=== PATIENT | female | born 1980 | race Caucasian/White ===

== ENCOUNTER 2017-09-21 21:29 | Emergency (ER) | payer SELFPAY ==
--- NOTE | 2017-09-21 23:13 | ER Document Report ---
ED Animal Bite - General Mode of Arrival: Ambulatory Information source: Patient <SHANNAN CARRION - Last Filed: 09/21/17 23:52> <HAYDE BURNETTE - Last Filed: 09/22/17 02:16> - General Chief Complaint: Dog Bite Stated Complaint: POSSIBLE DOG BITE Time Seen by Provider: 09/21/17 23:03 Notes: 37 y.o female presents to the ED s/p dog bite to her LT leg. Pt states that she was walking outside and a stray dog came out of no where and "latched onto her leg". Pt does not wish to get rabies vaccination. She has no other complaints at this time. (SHANNAN CARRION) - Related Data Allergies/Adverse Reactions: montelukast [From Singulair] Allergy (Verified 09/21/17 21:55) Past Medical History - General Information source: Patient - Social History Family History: Reviewed & Not Pertinent Renal/ Medical History: Denies: Hx Peritoneal Dialysis - Immunizations Hx Diphtheria, Pertussis, Tetanus Vaccination: Yes <SHANNAN CARRION - Last Filed: 09/21/17 23:52> - Social History Smoking Status: Never Smoker Frequency of alcohol use: None Family History: Reviewed & Not Pertinent - Past Medical History Cardiac Medical History: Reports: Hx Hypertension <HAYDE BURNETTE - Last Filed: 09/22/17 02:16> Review of Systems - Review of Systems Constitutional: No symptoms reported EENT: No symptoms reported Cardiovascular: No symptoms reported Respiratory: No symptoms reported Gastrointestinal: No symptoms reported Genitourinary: No symptoms reported Female Genitourinary: No symptoms reported Musculoskeletal: No symptoms reported Skin: Other - Dog bite to LT leg Hematologic/Lymphatic: No symptoms reported Neurological/Psychological: No symptoms reported -: Yes All other systems reviewed and negative <SHANNAN CARRION - Last Filed: 09/21/17 23:52> - Review of Systems Musculoskeletal: See HPI, Muscle pain. denies: No symptoms reported Skin: See HPI <HAYDE BURNETTE - Last Filed: 09/22/17 02:16> Physical Exam <SHANNAN CARRION - Last Filed: 09/21/17 23:52> <HAYDE BURNETTE - Last Filed: 09/22/17 02:16> - Vital signs Vitals: Temp Pulse Resp BP Pulse Ox 98.2 F 76 16 111/50 L 100 09/21/17 22:00 09/21/17 22:00 09/21/17 22:00 09/21/17 22:00 09/21/17 22:00 - Notes Notes: PHYSICal EXAM General: Alert, appears uncomfortable. HEENT: Normocephalic. Atraumatic. PERRLA. Extraocular movements intact. Oropharynx clear. Neck: Supple. Lungs: Clear to auscultation bilaterally, no wheezes, rales, or rhonchi. No respiratory distress. Heart: Regular rate and rhythm. No murmurs, gallops, or rubs. Abdominal: Normal Inspection. No distension. Extremities: Moves all four extremities. Puncture wounds to her LT lateral leg with surrounding ecchymosis consistent with her Hx. Bleeding controlled. Neurological: Cranial nerves II-XII grossly intact bilaterally. Normal cognition. AAOx4. Normal speech. Psychological: Normal affect. Normal Mood. Skin: puncture wounds to her LT lateral leg with surrounding ecchymosis consistent with Hx. Bleeding controlled. (SHANNAN CARRION) Course <SHANNAN CARRION - Last Filed: 09/21/17 23:52> <HAYDE BURNETTE - Last Filed: 09/22/17 02:16> - Re-evaluation Re-evalutation: 09/22/17 Patient is a 37-year-old female who comes in after a dog bit her on the leg. She does not know the dog. She did not call animal control and she does not want to call animal control. Patient has been strongly encouraged to get rabies vaccine that she does not know the animal and was an unprovoked attack. She declines. She will have her tetanus updated. Wound has been irrigated with normal saline and wrapped. Bleeding is controlled and will not be closed to prevent deep infection. Patient has been given a prescription for pain medication and antibiotics, Augmentin. She is to follow-up with her doctor and return if there is any redness, drainage, fever, or further concerns. Declined crutches. Stable for discharge. Grateful for care. (HAYDE BURNETTE) - Vital Signs Vital signs: Temp Pulse Resp BP Pulse Ox 97.9 F 58 L 18 107/54 L 100 09/22/17 00:52 09/22/17 00:52 09/22/17 00:52 09/22/17 00:52 09/22/17 00:52 Discharge <SHANNAN CARRION - Last Filed: 09/21/17 23:52> <HAYDE BURNETTE - Last Filed: 09/22/17 02:16> - Discharge Clinical Impression: Dog bite of calf Qualifiers: Encounter type: initial encounter Laterality: left Qualified Code(s): S81.852A - Open bite, left lower leg, initial encounter; W54.0XXA - Bitten by dog, initial encounter; W54.0XXA - Bitten by dog, initial encounter Condition: Stable Disposition: HOME, SELF-CARE Instructions: Animal Bites ([facility]), Contusion ([facility]), Delayed Wound Closure ([facility]) , Ice Packs ([facility]) Additional Instructions: Please return to the emergency department if you have any redness or fever. If you decide that you would like rabies vaccination, please return to the emergency department or follow-up with your doctor. Prescriptions: Amox Tr/Potassium Clavulanate [Augmentin 875-125 Tablet] 1 tab PO BID 10 Days tablet Oxycodone HCl/Acetaminophen [Percocet 5-325 mg Tablet] 1 - 2 tab PO Q4H PRN #15 tablet PRN Reason: Scribe Attestation: 09/22/17 02:13 I personally performed the services described in the documentation, reviewed and edited the documentation which was dictated to the scribe in my presence, and it accurately records my words and actions. (HAYDE BURNETTE) Scribe Documentation - Scribe Written by Sebas:: Sebas Poole [id number] 09/21/17 acting as scribe for :: Ciro <SHANNAN CARRION - Last Filed: 09/21/17 23:52>
[2017-09-21] MEDS ORDERED: DIPH/PERTUSS(ACELL)/TETANUS VAC/PF 0.5 ML SYR (>=10YO) IM ONE (23:19)
[2017-09-21] MEDS ORDERED: OXYCODONE-ACETAMINOPHEN 5-325 MG TABLET PO ONE (23:40)
[2017-09-22] MEDS ORDERED: AMOXICILLIN TR/POT CLAVULANATE 250-125 MG TAB PO ONE (00:30)
[2017-09-22] MEDS ORDERED: AMOXICILLIN TR/POT CLAVULANATE 500-125 MG TAB PO ONE (00:30)
[2017-09-22] MEDS ORDERED: OXYCODONE-ACETAMINOPHEN 5-325 MG TABLET PO ONE (00:31)
[2017-09-22] MEDS ORDERED: HYDROCODONE/ACETAMINOPHEN 5-325 MG (6 TAB/ER DISP) PO PRN (00:34)
[2017-09-22 01:14] VITALS: BP 107/54
== END 2017-09-22 00:55 | disposition home or self-care (01) ==
LOC: ER 21:29
DX: S81.852A Open bite, left lower leg, initial encounter (principal); W54.0XXA Bitten by dog, initial encounter; Z23 Encounter for immunization; I10 Essential (primary) hypertension
CPT/HCPCS: 99283; 90471; 90715; J3490